=== PATIENT | female | born 1960 | race Caucasian/White ===

== ENCOUNTER → 2021-01-18 | Outpatient (CLI) | payer OTHER ==
--- NOTE | 2021-01-18 10:51 | RAD ---
EXAM: Chest and right ribs, 4 views. HISTORY: Pain. COMPARISON: None. FINDINGS: A frontal view of the chest and 3 views of the right ribs are obtained. There is no infiltr ate, pleural effusion or pneumothorax. The heart is normal in size. No acute rib fracture is seen. Th ere are incidental cholecystectomy clips. There is a calcification overlying the right mid abdomen, p ossibly associated with the right kidney. IMPRESSION: No acute pulmonary or osseous finding. Electronically signed by: Pavithra Pettit MD (01/18/2021 10:49 AM) [id number]
== END ==
LOC: RAD 09:58
PROVIDERS: ATTEND Family Medicine
DX: R07.81 Pleurodynia (principal); Z90.49 Acquired absence of other specified parts of digestive tract
CPT/HCPCS: 71101

== ENCOUNTER 2021-11-22 00:10 | Emergency (ER) | payer OTHER ==
[~2021-11-22] VITALS: Ht 165.1 cm; Wt 109.5 kg
--- NOTE | 2021-11-22 00:12 | PHYS DOC ---
General Adult HPI: HPI: ".. I ve had chest pain for 4 weeks now.. ".." It is off and on.. it was worse tonight... but after I checked in it went away..." Patient is a 61 year old female who presents with above hx and complaints chest pain. Pain is usually central and into the left breast. Usually rated as a 4 5. Currently has no pain. No history of trauma. 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 No history of fever or chills. No history of dyspnea. Pain is intermittent. Patient does have some arthritic complaints which is relieved by Aleve. She does not take it daily., But just before she goes to work. There is no family history of early onset of cardiac disorders. No history of coagulopathy with family members were self. Patient normally healthy. Did not get COVID vaccination or flu vaccination. Patient does not smoke. Patient does not use drugs. Patient had no zoster rash in the area of chest pain. Pain was not reproducible on palpation. Pt. does have some hx of GERD complaints. Pt. follows with Dr. Castanon. Review of Systems: Review of Systems: Constitutional: Denies fever or chills Eyes: Denies change in visual acuity HENT: Denies nasal congestion or sore throat Cardiac: Chest pain Respiratory: Denies cough or shortness of breath or edema GI: Denies abdominal pain, nausea, vomiting, bloody stools or diarrhea : Denies dysuria Musculoskeletal: Denies back pain or joint pain Integument: Denies rash Neurologic: Denies headache, focal weakness or sensory changes Endocrine: Denies polyuria or polydipsia Lymphatic: Denies swollen glands Psychiatric: Denies depression or anxiety Family History: Family History: Noncontributory to presentation parents in their 80s-mother had dementia Current Medications: Current Meds: See nursing for home meds Allergies: Allergies: No known drug allergies Physical Exam: PE: Constitutional: , no acute distress, non-toxic appearance. [] HENT: Normocephalic, atraumatic, bilateral external ears normal, oropharynx moist, no oral exudates, nose normal. [] Eyes: PERRLA, EOMI, conjunctiva normal, no discharge. [] Neck: Normal range of motion, no tenderness, supple, no stridor. [] Cardiovascular:Heart rate regular rhythm, no murmur [] Lungs & Thorax: Bilateral breath sounds equal apex auscultation [] Abdomen: Bowel sounds normal, soft, no tenderness, no masses, no pulsatile masses. Obese Skin: Warm, dry, no erythema, no rash. [] Back: No tenderness, no CVA tenderness. [] Extremities: No tenderness, no cyanosis, no clubbing, ROM intact, no edema. No cording Neurologic: Alert and oriented X 3, normal motor function, normal sensory function, no focal deficits noted. [] Psychologic: Affect anxious, judgement normal, mood normal. [] EKG: EKG: My interpretation EKG shows a sinus bradycardia rhythm at 58 bpm. There is leftward axis. Some nonspecific contour changes anterior lateral leads. But no findings of acute STEMI of contralateral changes. Time of EKG is 00 24 minutes [] My interpretation second EKG shows a sinus rhythm at 60 bpm. No acute morphology. No acute interval change. Time of EKG is 313 hours Radiology/Procedures: Radiology/Procedures: [][place] [address] IMAGING REPORT Signed PATIENT: MAHNAZ MAR ACCOUNT: [id number] : 1960 LOCATION: ER AGE: 61 SEX: F EXAM STATUS: REG ER ORD. PHYSICIAN: LUKE RUBIN MD REASON: recurrent episode pleuretic cp, PROCEDURE: CT ANGIOGRAPHY CHEST PQRS Compliance Statement: One or more of the following individualized dose reduction techniques were utilized for this examination: 1. Automated exposure control 2. Adjustment of the mA and/or kV according to patient size 3. Use of iterative reconstruction technique CTA CHEST 11/22/2021 2:[address] angiography chest with contrast 11/22/2021 2:15 AM INDICATION: Recurrent pleuritic chest pain. COMPARISON: None available TECHNIQUE: Axial CT images of the chest were obtained after the intravenous administration of nonionic contrast. Coronal and sagittal reformats are provided. Maximum intensity projection images of the thoracic vasculature are provided. FINDINGS: The thyroid gland is normal in appearance. There are no pathologically enlarged axillary, mediastinal or hilar lymph nodes. The heart size is within normal limits. No significant pericardial effusion. Thoracic aorta is normal in course and caliber. There is adequate opacification of the pulmonary arterial system. There there are no filling defects within the pulmonary arterial system to suggest acute or chronic pulmonary embolus. There are no suspicious solid noncalcified pulmonary nodules. 7 mm calcified granuloma identified in the left lower lobe. There are no pulmonary infiltrates. There are no pleural effusions. No pulmonary vascular congestion or pneumothorax. Small hiatal hernia. Visualized portions of the upper abdomen are within normal limits. No suspicious osseous lesions are visualized. IMPRESSION: There is no evidence for acute or chronic pulmonary embolism. Electronically signed by: Roni Nguyen MD (11/22/2021 2:54 AM) [facility] DICTATED AND SIGNED BY: RONI NGUYEN MD DATE: 11/22/21246 CC: LUKE RUBIN MD; [facility] ~[facility] IMAGING REPORT Signed PATIENT: MAHNAZ MAR ACCOUNT: [id number] : 1960 LOCATION: ER AGE: 61 SEX: F EXAM STATUS: REG ER ORD. PHYSICIAN: LUKE RUBIN MD REASON: cp PROCEDURE: PORTABLE CHEST 1V XR CHEST 1V 11/22/2021 1:08 AM INDICATION: Chest pain COMPARISON: 01/18/2021 TECHNIQUE: Portable frontal view of the chest is provided. FINDINGS: The cardiomediastinal silhouette is within normal limits. Lungs are clear. There are no significant pleural effusions. There is no pulmonary vascular congestion. No pneumothorax. No suspicious osseous abnormality. IMPRESSION: There is no acute cardiopulmonary process. Electronically signed by: Roni Nguyen MD (11/22/2021 1:31 AM) [facility] DICTATED AND SIGNED BY: RONI NGUYEN MD DATE: 11/22/21 012 CC: LUKE RUBIN MD; [facility] ~MTH0 0 Heart Score: C/O Chest Pain: Yes HEART Score for Chest Pain: HEART Score for Chest Pain Response (Comments) Value History Slighlty/Non-Suspicious 0 ECG Normal 0 Age >45 - < 65 1 Risk Factors 1 or 2 Risk Factors 1 Troponin < Normal Limit 0 Total 2 Risk Factors: Risk Factors: DM, Current or recent (<one month) smoker, HTN, HLP, family history of CAD, obesity. Risk Scores: Score 0 - 3: 2.5% MACE over next 6 weeks - Discharge Home Score 4 - 6: 20.3% MACE over next 6 weeks - Admit for Clinical Observation Score 7 - 10: 72.7% MACE over next 6 weeks - Early Invasive Strategies Course & Med Decision Making: Course & Med Decision Making Pertinent Labs and Imaging studies reviewed. (See chart for details) Patient consider taking a daily baby aspirin. Consider follow-up primary care and obtain outpatient stress testing and cardiology consult. Return if any concerns. Impression: 1. Chest Pain [] Dragon Disclaimer: Dragon Disclaimer: This electronic medical record was generated, in whole or in part, using a voice recognition dictation system. Departure Departure: Referrals: [facility] (PCP) Scripts Famotidine (PEPCID) 20 Mg Tablet 20 MG PO BID for gerd for 30 Days, #60 TAB Prov: LUKE RUBIN MD 11/22/21 Silvia Disclaimer This chart was dictated in whole or in part using Voice Recognition software in a busy, high-work load, and often noisy Emergency Department environment. It may contain unintended and wholly unrecognized errors or omissions. LUKE RUBIN MD Nov 22, 2021 00:12
[2021-11-22 00:20] VITALS: BP 143/80
[2021-11-22] MEDS ORDERED: ASPIRIN CHEWABLE 81 MG TABLET. PO ONE (00:30)
[2021-11-22] MEDS ORDERED: IV RINGERS SOLUTION,LACTATED 1,000 ML IV SCH (00:30)
[2021-11-22 00:51] LABS: BASO # 0.1 x10^3/uL (0.0-0.2); BASO % 1 % (0-3); EOS # 0.3 x10^3/uL (0.0-0.7); EOS % 3 % (0-3); HEMATOCRIT 42.5 % (36.0-47.0); HEMOGLOBIN 14.1 g/dL (12.0-15.5); LYMPH # 3.3 x10^3/uL (1.0-4.8); LYMPH % 36 % (24-48); MEAN CORPUSCULAR HEMOGLOBIN 30 pg (25-35); MEAN CORPUSCULAR HGB CONC 33 g/dL (31-37); MEAN CORPUSCULAR VOLUME 89 fL (79-100); MONO # 0.8 x10^3/uL (0.0-1.1); MONO % 9 % (0-9); NEUT # 4.7 x10^3uL (1.8-7.7); NEUT % 51 % (31-73); PLATELET COUNT 232 x10^3/uL (140-400); RED BLOOD COUNT 4.76 x10^6/uL (3.50-5.40); RED CELL DISTRIBUTION WIDTH 13.9 % (11.5-14.5); WHITE BLOOD COUNT 9.3 x10^3/uL (4.0-11.0)
[2021-11-22 01:11] LABS: CALCIUM 8.9 mg/dL (8.5-10.1); CREATININE 0.8 mg/dL (0.6-1.0); GFR 72.7; POTASSIUM 4.1 mmol/L (3.5-5.1)
[2021-11-22 01:25] LABS: DIRECT BILIRUBIN 0.1 mg/dL (0.0-0.2); MAGNESIUM 2.1 mg/dL (1.8-2.4); TOTAL BILIRUBIN 0.4 mg/dL (0.2-1.0); TOTAL PROTEIN 6.6 g/dL (6.4-8.2)
--- NOTE | 2021-11-22 01:33 | RAD ---
XR CHEST 1V 11/22/2021 1:08 AM INDICATION: Chest pain COMPARISON: 01/18/2021 TECHNIQUE: Portable frontal view of the chest is provided. FINDINGS: The cardiomediastinal silhouette is within normal limits. Lungs are clear. There are no significant pleural effusions. There is no pulmonary vascular congestion. No pneumothora x. No suspicious osseous abnormality. IMPRESSION: There is no acute cardiopulmonary process. Electronically signed by: Sharon Gates MD (11/22/2021 1:31 AM) [facility]
[2021-11-22 01:45] LABS: INFLUENZA A PATIENT NEGATIVE (NEGATIVE); INFLUENZA B PATIENT NEGATIVE (NEGATIVE)
[2021-11-22] MEDS ORDERED: IOHEXOL 350 MG/ML 100 ML VIAL. IV ONE (02:15)
[2021-11-22] MEDS ORDERED: CONTRAST GIVEN. MC PRN (02:15)
--- NOTE | 2021-11-22 02:56 | RAD ---
PQRS Compliance Statement: One or more of the following individualized dose reduction techniques were utilized for this examinat ion: 1. Automated exposure control 2. Adjustment of the mA and/or kV according to patient size 3. Use of iterative reconstruction technique CTA CHEST 11/22/2021 2:[address] angiography chest with contrast 11/22/2021 2:15 AM INDICATION: Recurrent pleuritic chest pain. COMPARISON: None available TECHNIQUE: Axial CT images of the chest were obtained after the intravenous administration of nonioni c contrast. Coronal and sagittal reformats are provided. Maximum intensity projection images of the t horacic vasculature are provided. FINDINGS: The thyroid gland is normal in appearance. There are no pathologically enlarged axillary, mediastinal or hilar lymph nodes. The heart size is within normal limits. No significant pericardial effusion. T horacic aorta is normal in course and caliber. There is adequate opacification of the pulmonary arterial system. There there are no filling defects within the pulmonary arterial system to suggest acute or chronic pulmonary embolus. There are no suspicious solid noncalcified pulmonary nodules. 7 mm calcified granuloma identified in the left lower lobe. There are no pulmonary infiltrates. There are no pleural effusions. No pulmonary vascular congestion or pneumothorax. Small hiatal hernia. Visualized portions of the upper abdomen are within normal limits. No suspicious osseous lesions are visualized. IMPRESSION: There is no evidence for acute or chronic pulmonary embolism. Electronically signed by: Sharon Gates MD (11/22/2021 2:54 AM) [facility]
[2021-11-22] MEDS ORDERED: KETOROLAC 30 MG/ML VIAL. IVP ONE (03:15)
[2021-11-22] MEDS ORDERED: FAMO-63 PO (03:22)
[2021-11-22] MEDS ORDERED: FAMOTIDINE 20 MG/2 ML VIAL IVP ONE (03:30)
--- NOTE | 2021-11-22 04:09 | EKG ---
[address] [address] Test Date: 2021-11-22 Test Time: 00:24:27 Pat Name: MAHNAZ MAR Department: Room: Gender: F Clerical Specialist: ANAND : 1960 Requested By: LUKE RUBIN Order Number: [id number] Reading MD: Kiran Corona MD Measurements Intervals [place] Rate: 58 P: 47 [place]: 190 QRS: 0 QRSD: 88 T: 28 QT: 404 QTc: 400 Interpretive Statements SINUS RHYTHM Electronically Signed On 11-29-2021 16:23:28 BOOSTER OPERATOR by Kiran Corona MD
--- NOTE | 2021-11-22 04:14 | EKG ---
[address] [address] Test Date: 2021-11-22 Test Time: 03:13:32 Pat Name: MAHNAZ MAR Department: Room: Gender: F Technical Instructor: ANAND : 1960 Requested By: LUKE RUBIN Order Number: [id number] Reading MD: Kiran Corona MD Measurements Intervals [place] Rate: 60 P: 0 MD: 204 QRS: 40 QRSD: 86 T: 12 QT: 418 QTc: 418 Interpretive Statements SINUS RHYTHM Electronically Signed On 11-29-2021 16:23:12 LAYER OUT PLATE GLASS by Kiran Corona MD
[2021-11-22 15:21] LABS: CHOLESTEROL/HDL RATIO 4.2; THYROID STIM HORMONE (TSH) 3.351 uIU/mL (0.358-3.740)
== END 2021-11-22 03:59 | disposition home or self-care (01) ==
LOC: ER 00:10
DX: R07.89 Other chest pain (principal); Z20.822 Contact with and (suspected) exposure to COVID-19
CPT/HCPCS: 36415; 71045; 71275; 80048; 80061; 80076; 82550; 83690; 83735; 83880; 84443; 84484; 85025; 85379; 85610; 85730; 87428; 93005; 96361; 96374; 96375; 99285; J1885; J3490; J7120